=== PATIENT | female | born 1995 | race Caucasian/White ===

== ENCOUNTER → 2020-10-29 17:00 | Outpatient (CLI) | payer SELFPAY | END | disposition home or self-care (01) | LOC: D.ER 16:41 → D.LDO 17:00 → EDSTATUS 17:04 | PROVIDERS: ATTEND Obstetrics & Gynecology | DX: O26.899 Other specified pregnancy related conditions, unspecified trimester (principal); R10.9 Unspecified abdominal pain ==

== ENCOUNTER 2020-12-03 14:38 | Outpatient (CLI) | payer BC | END 2020-12-03 15:25 | disposition home or self-care (01) | LOC: D.LDO 14:38 | PROVIDERS: ATTEND Obstetrics & Gynecology | DX: O36.8190 Decreased fetal movements, unspecified trimester, not applicable or unspecified (principal) ==

== ENCOUNTER 2020-12-03 23:20 | Emergency (ER) | payer SELFPAY ==
[~2020-12-03] VITALS: Ht 167.6 cm; Wt 105.5 kg
[2020-12-03 23:31] VITALS: Ht 167.6 cm; Wt 105.5 kg
[2020-12-03 23:55] LABS: HEMATOCRIT 30.3 % (36.0-48.0); HEMOGLOBIN 10.2 g/dL (12-16); LYMPHOCYTES 17.7 % (15-50); MCHC 33.7 g/dL (31.0-37.0); MCV 80.2 fL (80.0-100.0); MEAN PLATELET VOLUME 10.6 fL (7.4-10.4); NEUTROPHILS 76.8 % (40-80); PLATELET COUNT 262 10x3/uL (130-400); RBC 3.78 10x6/uL (4.00-5.40); WBC 14.7 10x3/uL (4.8-10.8)
[2020-12-04 00:02] LABS: CALC OSMOLALITY 273 mosm/kg (275-300); CALCIUM 8.9 mg/dL (8.5-10.1); CHLORIDE - SERUM 104 mmol/L (98-107); CREATININE - SERUM 0.7 mg/dL (0.6-1.3); GLUCOSE 91 mg/dL (74-106); POTASSIUM - SERUM 3.6 mmol/L (3.5-5.1); SODIUM 138 mmol/L (136-145); UREA NITROGEN 6 mg/dL (7-18); eGFR NON AFRICAN AMERICAN > 90 mL/min (90-120)
[2020-12-04 00:03] LABS: ALBUMIN 2.9 g/dL (3.4-5.0); ALKALINE PHOSPHATASE 89 U/L (30-120); ALT (SGPT) 22 U/L (10-68); BILIRUBIN - TOTAL 0.32 mg/dL (0.2-1.3); PROTEIN - SERUM 6.8 g/dL (6.4-8.2)
[2020-12-04 00:17] LABS: BILIRUBIN NEGATIVE (NEGATIVE); KETONE NEGATIVE (NEGATIVE); NITRITE NEGATIVE (NEGATIVE); UROBILINOGEN NORMAL mg/dL (< 2)
[2020-12-04 00:19] LABS: AMORPHOUS SEDIMENT <1+ LPF (NONE SEEN); BACTERIA MODERATE HPF (NONE SEEN); SQUAMOUS EPITHELIAL 0-5 HPF (0-4); WHITE CELLS - URINE 0-5 HPF (0-4)
[2020-12-04 01:52] VITALS: BP 131/68
[2020-12-05] MEDS ORDERED: HYDROCODON-ACE1 EAC7 PO (12:03)
== END 2020-12-04 01:52 | disposition home or self-care (01) ==
LOC: D.ER 23:20
PROVIDERS: Family Medicine
DX: O99.613 Diseases of the digestive system complicating pregnancy, third trimester (principal); R10.11 Right upper quadrant pain; Z3A.34 34 weeks gestation of pregnancy

== ENCOUNTER 2020-12-04 19:41 | Outpatient (CLI) | payer BC ==
[2020-12-04 22:09] LABS: BASOPHILS 0.1 % (0-2); EOSINOPHILS 0.4 % (0-7); HEMATOCRIT 30.7 % (36.0-48.0); IMMATURE GRANULOCYTES 0.3 % (0-5); LYMPHOCYTE ABS# 1.66 10x3/uL (1.18-3.74); LYMPHOCYTES 13.1 % (15-50); MCH 26.7 pg (26.0-34.0); MCHC 32.6 g/dL (31.0-37.0); MCV 81.9 fL (80.0-100.0); MONOCYTES 5.3 % (2-11); NEUTROPHIL ABS# 10.28 10x3/uL (1.56-6.13); NEUTROPHILS 80.8 % (40-80); PLATELET COUNT 277 10x3/uL (130-400); RBC 3.75 10x6/uL (4.00-5.40); RDW 13.9 % (11.5-14.5); WBC 12.7 10x3/uL (4.8-10.8)
[2020-12-04 22:21] LABS: CALC OSMOLALITY 273 mosm/kg (275-300); CARBON DIOXIDE 23.3 mmol/L (21.0-32.0); CHLORIDE - SERUM 105 mmol/L (98-107); CREATININE - SERUM 0.6 mg/dL (0.6-1.3); GLUCOSE 76 mg/dL (74-106); POTASSIUM - SERUM 3.5 mmol/L (3.5-5.1); SODIUM 139 mmol/L (136-145); UREA NITROGEN 5 mg/dL (7-18); eGFR NON AFRICAN AMERICAN > 90 mL/min (90-120)
[2020-12-04 22:24] LABS: ALBUMIN 2.8 g/dL (3.4-5.0); ALKALINE PHOSPHATASE 106 U/L (30-120); AMYLASE - SERUM 39 U/L (25-115); BILIRUBIN - TOTAL 1.13 mg/dL (0.2-1.3); LIPASE 61 U/L (73-393); PROTEIN - SERUM 6.8 g/dL (6.4-8.2)
[2020-12-04 22:25] LABS: ALT (SGPT) 51 U/L (10-68)
[2020-12-05 10:02] LABS: BASOPHILS 0.2 % (0-2); EOSINOPHILS 1.7 % (0-7); HEMATOCRIT 26.7 % (36.0-48.0); HEMOGLOBIN 8.6 g/dL (12-16); IMMATURE GRANULOCYTES 0.2 % (0-5); LYMPHOCYTES 20.6 % (15-50); MCH 26.5 pg (26.0-34.0); MCHC 32.2 g/dL (31.0-37.0); MCV 82.4 fL (80.0-100.0); MONOCYTES 6.7 % (2-11); NEUTROPHIL ABS# 6.15 10x3/uL (1.56-6.13); NEUTROPHILS 70.6 % (40-80); RBC 3.24 10x6/uL (4.00-5.40); RDW 13.8 % (11.5-14.5)
[2020-12-05 10:03] LABS: PLATELET COUNT 207 10x3/uL (130-400); WBC 8.7 10x3/uL (4.8-10.8)
[2020-12-05 10:18] LABS: ALBUMIN 2.4 g/dL (3.4-5.0); ALKALINE PHOSPHATASE 92 U/L (30-120); ALT (SGPT) 37 U/L (10-68); AMYLASE - SERUM 35 U/L (25-115); BILIRUBIN - TOTAL 0.25 mg/dL (0.2-1.3); CALC OSMOLALITY 275 mosm/kg (275-300); CALCIUM 8.2 mg/dL (8.5-10.1); CARBON DIOXIDE 20.8 mmol/L (21.0-32.0); CHLORIDE - SERUM 107 mmol/L (98-107); CREATININE - SERUM 0.6 mg/dL (0.6-1.3); GLUCOSE 90 mg/dL (74-106); LIPASE 58 U/L (73-393); POTASSIUM - SERUM 3.6 mmol/L (3.5-5.1); PROTEIN - SERUM 5.6 g/dL (6.4-8.2); SODIUM 139 mmol/L (136-145); UREA NITROGEN 6 mg/dL (7-18); eGFR NON AFRICAN AMERICAN > 90 mL/min (90-120)
[2020-12-05] MEDS ORDERED: HYDROCODON-ACE1 EAC7 PO (12:03)
[2020-12-05 13:04] VITALS: BMI 37.5
== END 2020-12-05 12:45 | disposition home or self-care (01) ==
LOC: D.LD 19:41 → D.LDO 19:41 → D.LD 20:49 → D.LDO 12-05 12:45
PROVIDERS: Obstetrics & Gynecology; ATTEND Obstetrics & Gynecology
DX: O26.899 Other specified pregnancy related conditions, unspecified trimester (principal); K82.9 Disease of gallbladder, unspecified

== ENCOUNTER 2020-12-06 18:01 | Emergency (ER) | payer BC ==
[~2020-12-06] VITALS: Ht 167.6 cm; Wt 104.5 kg
[~2020-12-06 18:01] MED LIST: HYDROCODON-ACE1 EAC7 PO
[2020-12-06 18:12] VITALS: Ht 167.6 cm; Wt 104.5 kg
[2020-12-06 22:26] LABS: BASOPHILS 0.1 % (0-2); EOSINOPHILS 0.4 % (0-7); HEMATOCRIT 30.3 % (36.0-48.0); HEMOGLOBIN 9.9 g/dL (12-16); IMMATURE GRANULOCYTES 0.1 % (0-5); LYMPHOCYTE ABS# 1.46 10x3/uL (1.18-3.74); LYMPHOCYTES 13.6 % (15-50); MCH 26.8 pg (26.0-34.0); MCHC 32.7 g/dL (31.0-37.0); MCV 81.9 fL (80.0-100.0); MEAN PLATELET VOLUME 11.4 fL (7.4-10.4); MONOCYTES 4.9 % (2-11); NEUTROPHIL ABS# 8.66 10x3/uL (1.56-6.13); NEUTROPHILS 80.9 % (40-80); RDW 13.8 % (11.5-14.5); WBC 10.7 10x3/uL (4.8-10.8)
[2020-12-06 22:30] LABS: PLATELET COUNT 263 10x3/uL (130-400)
[2020-12-06 22:31] LABS: BILIRUBIN NEGATIVE (NEGATIVE); KETONE LARGE mg/dL (NEGATIVE); NITRITE NEGATIVE (NEGATIVE); UROBILINOGEN 4 mg/dL (< 2)
[2020-12-06 22:38] LABS: CALC OSMOLALITY 273 mosm/kg (275-300); CARBON DIOXIDE 21.1 mmol/L (21.0-32.0); CHLORIDE - SERUM 104 mmol/L (98-107); CREATININE - SERUM 0.5 mg/dL (0.6-1.3); GLUCOSE 71 mg/dL (74-106); POTASSIUM - SERUM 3.5 mmol/L (3.5-5.1); SODIUM 139 mmol/L (136-145); UREA NITROGEN 6 mg/dL (7-18); eGFR NON AFRICAN AMERICAN > 90 mL/min (90-120)
[2020-12-06 22:47] LABS: ALBUMIN 2.9 g/dL (3.4-5.0); ALKALINE PHOSPHATASE 135 U/L (30-120); BILIRUBIN - TOTAL 1.11 mg/dL (0.2-1.3)
[2020-12-06 22:56] LABS: ALT (SGPT) 85 U/L (10-68); PROTEIN - SERUM 7.2 g/dL (6.4-8.2)
[2020-12-06 23:00] VITALS: BP 98/55
[2020-12-07] VITALS: BP 98/54
[2020-12-07 01:27] VITALS: BP 91/44
[2020-12-07 02:00] VITALS: BP 98/61
[2020-12-07 03:30] VITALS: BP 109/78
== END 2020-12-07 02:48 | disposition left against medical advice (07) ==
LOC: OBSVTIME → D.ER 18:01 → D.EDHOLD 12-07 02:16 → OBSVTIME 12-07 02:16 → D.EDHOLD 12-07 02:48 → D.ER 12-07 02:48
PROVIDERS: Family Medicine
DX: O99.613 Diseases of the digestive system complicating pregnancy, third trimester (principal); Z3A.34 34 weeks gestation of pregnancy; R10.11 Right upper quadrant pain

== ENCOUNTER 2020-12-22 22:18 | Outpatient (CLI) | payer BC ==
[2020-12-06 18:12] VITALS: BMI 37.2
== END 2020-12-22 22:45 | disposition home or self-care (01) ==
LOC: D.LDO 22:18
PROVIDERS: ATTEND Obstetrics & Gynecology
DX: O47.03 False labor before 37 completed weeks of gestation, third trimester (principal); Z3A.36 36 weeks gestation of pregnancy

== ENCOUNTER 2020-12-24 18:53 | Outpatient (CLI) | payer BC ==
[2020-12-06 18:12] VITALS: Ht 167.6 cm; Wt 103.4 kg
[~2020-12-24] VITALS: Ht 167.6 cm; Wt 103.4 kg
[2020-12-24 19:43] LABS: ALBUMIN 2.7 g/dL (3.4-5.0); ALKALINE PHOSPHATASE 98 U/L (30-120); ALT (SGPT) 30 U/L (10-68); AMYLASE - SERUM 42 U/L (25-115); BILIRUBIN - TOTAL 0.53 mg/dL (0.2-1.3); CALC OSMOLALITY 268 mosm/kg (275-300); CALCIUM 8.3 mg/dL (8.5-10.1); CARBON DIOXIDE 22.7 mmol/L (21.0-32.0); CHLORIDE - SERUM 104 mmol/L (98-107); CREATININE - SERUM 0.7 mg/dL (0.6-1.3); GLUCOSE 76 mg/dL (74-106); LIPASE 68 U/L (73-393); POTASSIUM - SERUM 3.4 mmol/L (3.5-5.1); PROTEIN - SERUM 6.5 g/dL (6.4-8.2); SODIUM 136 mmol/L (136-145); UREA NITROGEN 6 mg/dL (7-18); eGFR NON AFRICAN AMERICAN > 90 mL/min (90-120)
--- NOTE | 2020-12-25 07:50 | NUR ---
THIS RN TO ROOM FOR PT CHECK. PT LYING IN BED ON RIGHT SIDE, ALERTS TO VOICE. PT STATES SHE FEELS "MUCH BETTER", RATES PAIN 2/10, AND FEELS LIKE EATING BREAKFAST. WILL UPDATE DR ABDUL AND RETURN FOR SHIFT ASSESSMENT.
--- NOTE | 2020-12-25 08:00 | NUR ---
DR ABDUL PHONED AND UPDATE GIVEN THAT PT REPORTS FEELING "MUCH BETTER" THIS MORNING. DENIES NAUSEA, RATES PAIN 2/10, STATES SHE FEELS LIKE EATING BREAKFAST. ORDER RECEIVED FOR LOW-FAT BREAKFAST TRAY AND NST. IF TOLERATES BREAKFAST AND NST REACTIVE, WILL D/C TO HOME.
[2020-12-27 14:34] VITALS: Ht 167.6 cm; Wt 103.4 kg
== END 2020-12-25 19:00 | disposition home or self-care (01) ==
LOC: D.LDO 18:53 → D.LD 18:54 → D.LDO 12-25 19:00
PROVIDERS: ATTEND Student in an Organized Health Care Education/Training Program
DX: O35.9XX0 Maternal care for (suspected) fetal abnormality and damage, unspecified, not applicable or unspecified (principal)

== ENCOUNTER 2020-12-26 09:32 | Inpatient (IN) | payer BC ==
[~2020-12-26] VITALS: Ht 167.6 cm; Wt 105.2 kg
--- NOTE | 2020-12-26 10:15 | NUR ---
ORDERS RECEIVED FROM DR ARORA FOR ADMIT WITH INDUCTION OF LABOR.
--- NOTE | 2020-12-26 10:46 | NUR ---
PT TO BATHROOM TO CHANGE INTO GOWN AND GIVE URINE SAMPLE. SHE DENIES ANY QUESTIONS OR CONCERNS ABOUT PLAN OF CARE FOR INDUCTION OF LABOR.
[2020-12-26 11:43] LABS: BASOPHILS 0.7 % (0-2); EOSINOPHILS 1.1 % (0-7); HEMATOCRIT 30.6 % (36.0-48.0); HEMOGLOBIN 10.3 g/dL (12-16); LYMPHOCYTES 18.4 % (15-50); MCH 26.9 pg (26.0-34.0); MCHC 33.8 g/dL (31.0-37.0); MCV 79.5 fL (80.0-100.0); MONOCYTES 5.6 % (2-11); NEUTROPHILS 74.2 % (40-80); PLATELET COUNT 213 10x3/uL (130-400); RBC 3.84 10x6/uL (4.00-5.40); RDW 14.3 % (11.5-14.5)
[2020-12-26 11:56] LABS: ALBUMIN 2.9 g/dL (3.4-5.0); ALKALINE PHOSPHATASE 118 U/L (30-120); AMYLASE - SERUM 35 U/L (25-115); BILIRUBIN - TOTAL 0.69 mg/dL (0.2-1.3); CALC OSMOLALITY 269 mosm/kg (275-300); CARBON DIOXIDE 24.3 mmol/L (21.0-32.0); CHLORIDE - SERUM 102 mmol/L (98-107); CREATININE - SERUM 0.7 mg/dL (0.6-1.3); GLUCOSE 72 mg/dL (74-106); POTASSIUM - SERUM 3.7 mmol/L (3.5-5.1); SODIUM 137 mmol/L (136-145); UREA NITROGEN 5 mg/dL (7-18); eGFR NON AFRICAN AMERICAN > 90 mL/min (90-120)
[2020-12-26 11:58] LABS: ALT (SGPT) 41 U/L (10-68); LIPASE 50 U/L (73-393)
[2020-12-26 12:15] LABS: UDS - AMPHET NEGATIVE QUAL (NEGATIVE); UDS - BARB NEGATIVE QUAL (NEGATIVE); UDS - BENZO NEGATIVE QUAL (NEGATIVE); UDS - COCAINE NEGATIVE QUAL (NEGATIVE); UDS - OPIATE POSITIVE QUAL (NEGATIVE); UDS - PCP NEGATIVE QUAL (NEGATIVE); UDS - THC NEGATIVE QUAL (NEGATIVE)
[2020-12-26 16:14] VITALS: BMI 37.5
[2020-12-27] VITALS (8 sets, daily range): BP systolic 115–142; BP diastolic 55–68; Ht 167.6 cm; Wt 105.2 kg
--- NOTE | 2020-12-27 08:06 | NUR ---
VIABLE FEMALE BORN AT 0759 ALL CORD BLOOD SENT
[2020-12-27 08:14] LABS: RAPID PLASMA REAGIN Non Reactive (Non Reactive)
--- NOTE | 2020-12-27 13:30 | NUR ---
ROOM CHECK, PT , RATING PAIN TO INCISIONAL AREA 3/10, REPORTS CRAMPING. DENIES OTHER NEEDS, PT CONTINUES TO DENY N/V, SOB, CHEST PAIN, OR DIZZINESS. SR UP X2, CL/PHONE IN REACH. SIG OTHER AT BEDSIDE.
--- NOTE | 2020-12-27 14:10 | NUR ---
LAB HERE FOR CBC DRAW.
[2020-12-27 14:36] LABS: BASOPHILS 0.2 % (0-2); EOSINOPHILS 0.2 % (0-7); LYMPHOCYTES 10.6 % (15-50); MCH 25.8 pg (26.0-34.0); MCV 78.4 fL (80.0-100.0); MEAN PLATELET VOLUME 9.7 fL (7.4-10.4); MONOCYTES 5.7 % (2-11); NEUTROPHILS 83.3 % (40-80); PLATELET COUNT 188 10x3/uL (130-400); RBC 3.11 10x6/uL (4.00-5.40); RDW 14.8 % (11.5-14.5)
[2020-12-27 14:38] LABS: HEMATOCRIT 24.4 % (36.0-48.0); WBC 14.6 10x3/uL (4.8-10.8)
--- NOTE | 2020-12-27 19:00 | NUR ---
BEDSIDE SHIFT REPORT RCVD. PT DENIES NEEDS AT THIS TIME, CURRENTLY FEEDING . WILL RETURN FOR SHIFT ASSESSMENT.
--- NOTE | 2020-12-27 20:15 | NUR ---
ROUNDS MADE. PT CONTINUES TO ATTEMPT TO FEED . ADVISED TO CALL WHEN FINISHED. PT DENIES PAIN OR NEEDS.
--- NOTE | 2020-12-27 21:00 | NUR ---
SHIFT ASSESSMENT COMPLETED. SEE FLOWSHEET. HR-RRR, PPP, LUNGS CTAB, BS ACTIVE X3. PIV TO RT WRIST PATENT WITH NS WITH 20 U PITOCIN INFUSING AT 125ML/HR. NO ERYTHEMA OR EDEMA NOTED TO SITE. LARGE DRESSING NOTED TO LOWER ABD WITH LOW TRANSVERSE INCISION. FF U/1. SCANT LOCHIA RUBRA NOTED TO PERIPAD. PAD CHANGED. MORENO DRAINING TO GRAVITY. SCD'S IN PLACE, PUMP ON AND FUNCTIONING. PT DENIES QUESTIONS, CONCERNS, OR C/O. WILL CONTINUE TO MONITOR.
--- NOTE | 2020-12-27 22:31 | NUR ---
TORADOL GIVEN FOR PAIN RATED 5/10 AT THIS TIME. PT DENIES FURTHER NEEDS. WILL CONTINUE TO MONITOR.
--- NOTE | 2020-12-28 00:13 | NUR ---
PAIN REASSESSMENT COMPLETED. PT RATES PAIN 2/10 AND TOLERABLE, SITTING UP IN BED INFANT. DENIES NEEDS AT THIS TIME.
--- NOTE | 2020-12-28 02:32 | NUR ---
ROUNDS MADE. PT LYING SUPINE WITH HOB 45 DEGREES, RESTING WITH EYES CLOSED AND RESPIRATIONS EVEN AND UNLABORED. FOB SLEEPING ON COUCH AT BEDSIDE. PT LEFT UNDISTURBED AT THIS TIME.
--- NOTE | 2020-12-28 04:13 | NUR ---
PT CALLS OUT ON LIGHT REQUESTING PERIPADS. PT C/O URINE LEAKING OUT OF MORENO. 400 MLS YELLOW URINE EMPTIED INTO DRAINAGE BAG. NEW PERIPADS AND CHARY PLACED. PT'S RN NOTIFIED OF C/O URINE LEAKING FROM MORENO.
--- NOTE | 2020-12-28 04:28 | NUR ---
PT REPORTS MORNEO CATHETER LEAKING. UPON ASSESSMENT, PT'S LINENS NOTED TO BE SATURATED IN URINE. REPORT CALLED TO DR LOWELL MD ON-CALL. T/O RCVD TO D/C MORENO, BUT UTILIZE A BEDPAN IF NEEDED UNTIL DR ARORA MAKES ROUNDS THIS AM. POC DISCUSSED WITH PT. MORENO CATH D/C'D WITH ANOTHER 175ML CLEAR YELLOW URINE DRAINED INTO UROMETER. CHUCKS AND PERIPADS CHANGED. PT DENIES FURTHER NEEDS AT THIS TIME.
[2020-12-28 04:29] VITALS: BP 125/68
--- NOTE | 2020-12-28 06:22 | NUR ---
ROUNDS MADE. PT ATTEMPTING TO CALM IN OPEN CRIB AT BEDSIDE. PLACED IN PT'S ARMS PER REQUEST. PT DENIES PAIN OR NEEDS. DENIES NEED TO VOID. WILL CONTINUE TO MONITOR.
[2020-12-28 06:56] LABS: BASOPHILS 0.4 % (0-2); HEMATOCRIT 23.6 % (36.0-48.0); HEMOGLOBIN 7.9 g/dL (12-16); LYMPHOCYTES 20.8 % (15-50); MCH 26.9 pg (26.0-34.0); MCHC 33.5 g/dL (31.0-37.0); MCV 80.2 fL (80.0-100.0); MEAN PLATELET VOLUME 9.4 fL (7.4-10.4); MONOCYTES 6.3 % (2-11); NEUTROPHILS 71.5 % (40-80); PLATELET COUNT 178 10x3/uL (130-400); RBC 2.95 10x6/uL (4.00-5.40); RDW 14.4 % (11.5-14.5)
[2020-12-28 07:20] VITALS: BP 111/63
--- NOTE | 2020-12-28 07:20 | NUR ---
AM ASSESSMENT COMPLETED, SEE FLOWSHEET. FUNDUS FIRM, U/1, SMALL RUBRA LOCHIA, NO CLOTS. PT REPORTS FEELING LIKE HER BLADDER IS FULL, NO BLADDER DISTENSION PALPATED. MEDICATION ADM RECORD REVIEWED WITH PT. PT WANTS TO WAIT TO GET UP TO THE BATHROOM WHEN HER PAIN MEDICATION STARTS TO WORK. MUG OF SPRITE SERVED TO PT AT HER REQUEST. SRUP 2, CALL LIGHT AND PHONE WITHIN REACH. PT DENIES ALL OTHER NEEDS.
--- NOTE | 2020-12-28 07:30 | NUR ---
DR. ARORA IN MD BORJA, REPORT TO MD PT IS WANTING TO GET UP WHEN HER PAIN MEDICATION STARTS TO WORK, VERBAL ORDER FROM MD TO NORMALIZE PT, MAY SL IV, AMBULATE, ADVANCE DIET AND CHANGE PAIN MEDICATION TO PO.
[2020-12-28 07:31] LABS: WBC 8.5 10x3/uL (4.8-10.8)
--- NOTE | 2020-12-28 07:45 | NUR ---
PT CALLS OUT FOUNTAIN VENDING MECHANIC LIGHT STATES SHE IS READY TO GET UP TO THE BATHROOM TO PEE. TO ROOM, IV SL, ALL IVFS STOPPED. PT THEN ASSISTED UP TO BR, GAIT SLOW AND STEADY. PT VOIDS PER SELF IN [place] HAT, WITHOUT DIFFICULTY, 800 MLS. PERICARE THEN DONE WITH WARM WATER, PERIBOTTLE. PERIPANTIES AND PADS ON. SMALL RUBRA LOCHIA, NO CLOTS. CLEAN GOWN ON. BED LINENS CHANGED. SRUPX2, CL/PHONE WITHIN REACH. PT THEN WANTS TO SIT ON SOFA WITH HER SIG OTHER FOR NOW. INFANT IN CRIB, NO DISTRESS NOTED. PARENTS DENY NEEDS.
--- NOTE | 2020-12-28 09:15 | NUR ---
DR. ARORA TO PT'S ROOM TO SPEAK WITH HER REGARDING PLAN OF CARE.
--- NOTE | 2020-12-28 09:55 | NUR ---
DR. ARORA ON UNIT, VERBAL ORDER RECEIVED TO ADVANCE PAIN MEDICATION TO PO IBUPROFEN 600 MG ONE EVERY 6 HRSP, AND NORCO 10 MG ONE EVERY 4 HRSP.
--- NOTE | 2020-12-28 11:34 | NUR ---
PT CALLS OUT CHIEF ENVIRONMENTAL COMMITMENT OFFICER LIGHT, REQUESTS PAIN MEDICATION, TO ROOM, PAIN ASSESSED, PT C/O PAIN TO INCISIONAL AREA, RATING PAIN 7/10, SEE EMAR. NORCO 10 MG ONE PO GIVEN FOR C/O PAIN. PT IS SITTING ON SOFA WITH SIG OTHER, PT HAS I/S IN HAND, STATES "I HAVE BEEN USING THIS THING EVERY TIME I THINK ABOUT". INFANT IN CRIB, SLEEPING, NO DISTRESS NOTED.
--- NOTE | 2020-12-28 12:00 | NUR ---
PT UP TO BR, AMBULATORY, PER SELF. VOIDS 600 MLS LIGHT YELLOW URINE, PERICARE DONE PER SELF. BACK TO SOFA, SHE IS SITTING UP ON THE SIDE OF THE BED WITH SIG OTHER. LARGE ICE WATER SERVED. PT DENIES ALL OTHER NEEDS AT THIS TIME.
--- NOTE | 2020-12-28 15:58 | NUR ---
TO PT'S ROOM FOR CHECK, PT CONTINUES TO DENY HEAVY BLEEDING OR PASSING CLOTS. PT DENIES SOB, DIZZINESS, CHEST PAIN OR DIFFICULTY BREATHING. VS OBTAINED, WNL CHARTED AT 1600. PT DENIES DIFFICULTY VOIDING, PT HAS VOIDED 3 MEASURED TIMES TODAY, INFORMED PT SHE NO LONGER HAS TO COLLECT, UNLESS C/O DIFFICULTY VOIDING. PT WISHES TO TAKE PAIN MEDICATION, NORCO 10 MG ONE PO GIVEN, SEE EMAR, AND THEN GIVE IT TIME TO WORK, AND THEN TAKE A SHOWER. CLEAN LINENS PROVIDED. SRUP X2, CL/PHONE WITHIN REACH. PT DENIES ALL OTHER NEEDS.
[2020-12-28 16:00] VITALS: BP 113/62
--- NOTE | 2020-12-28 17:00 | NUR ---
PT UP TO SHOWER, PERIPADS AND PANTIES PROVIDED. DIETARY SERVES REGULAR SUPPER TRAY. SIG OTHER HAS BROUGHT SUPPER TO PT. SR UP X 2, CALL LIGHT AND PHONE WITHIN REACH.
--- NOTE | 2020-12-28 18:50 | NUR ---
REPORT GIVEN TO 7 P SHIFT.
[2020-12-28 19:55] VITALS: BP 133/72
--- NOTE | 2020-12-28 19:55 | NUR ---
SHIFT ASSESSMENT COMPLETED AT THIS TIME. SEE FLOWSHEET. PT DENIES NEEDS FOR PAIN MEDICATION AT THIS TIME. HR-RRR, PPP, LUNGS CTAB, BS X4. FUNDUS REMAINS FIRM, ML, U/1. LOW TRANSVERSE INCISION WELL APPROXIMATED, C/D/I. BED LOW, WHEELS LOCKED, CL AND PHONE WITHIN REACH, SIDE RAILS UP X2.
--- NOTE | 2020-12-28 22:20 | NUR ---
RN TO BEDSIDE. PT SITTING ON COUCH AT BEDSIDE WITH FOB. INFANT RESTING IN OPEN CRIB. PT REQUESTS AND RECEIVES NORCO 10/325 MG X1 TAB AND MOTRIN 600 MG X1 TAB GIVEN FOR PAIN RATED 5/10 AT THIS TIME. PT DENIES FURTHER NEEDS. WILL CONTINUE TO MONITOR.
--- NOTE | 2020-12-28 22:40 | NUR ---
PT AMB IN HALLWAY. STEADY GAIT NOTED. DENIES NEEDS.
--- NOTE | 2020-12-28 23:30 | NUR ---
PAIN REASSESSMENT COMPLETED. PT RATES PAIN 3/10 AND TOLERABLE. DENIES FURTHER NEEDS AT THIS TIME.
[2020-12-29 02:35] VITALS: BP 123/61
--- NOTE | 2020-12-29 02:35 | NUR ---
pt. awakened for vitals at this time. VSS. See graph. pt. reports pain is at "5" on 0-10 scale at this time and request "can i have my pain medicine yet". Advised pt. I will bring it right back.
--- NOTE | 2020-12-29 02:40 | NUR ---
[place] 10/325 mg tablet administered orally and per pt. c/o pain and md orders. pt. is offered an ice pack at this time but refuses. Will cont. to monitor.
[2020-12-29 07:31] VITALS: BP 118/59
--- NOTE | 2020-12-29 07:31 | NUR ---
THIS RN TO ROOM FOR SHIFT ASSESSMENT. PT LYING IN BED, SUPINE, HOB APPROX 45 DEGREES. PT AAOx3, DENIES PAIN OR ANY NEEDS. SHIFT ASSESSMENT COMPLETE AND VSS, SEE FLOWSHEET FOR DOC. DISCUSSED POSSIBLE D/C TO HOME WITH PT, STATES SHE FEELS READY. DENIES DIZZINESS WHEN UP AMBULATING, GOOD COLOR/TONE TO SKIN, HR WNL. PT DENIES HEAVY LOCHIA, STATES SHE JUST HAD 2 PEA SIZED CLOTS WHEN UP TO BR APPROX 1 HOUR AGO. REINFORCE TO PT S/S TO REPORT REGARDING LOCHIA/CLOTS, UNDERSTANDING VERBALIZED. I.S. TEACHING ALSO REINFORCED, PT STATES SHE HAS BEEN DOING IT THROUGHOUT THE NIGHT INSTRUCTED. DENIES NAUSEA. FF, ML, U/3. SMALL RUBRA LOCHIA NOTED TO PERIPAD, PT STATES CHANGED APPROX 1 HOUR AGO WHEN UP TO BR. LOW TRANSVERSE ABD INCISION IS C/D WITH NOAH INTACT. MILD EDEMA NOTED BILAT TO LE, NON-PITTING, NEG HOMANS SIGN BILAT, 2+ PEDAL PULSES BILAT. POC DISCUSSED WITH PT INCLUDING DIET GIVEN GALLBLADDER ISSUES THIS . PT DENIES FEELING ANY GALLBLADDER PAINS SINCE DELIVERY AND THAT SHE UNDERSTANDING WHAT DIET TO ADHERE TO. WILL CALL FOR ANY NEEDS. SRUx2, CL IN REACH. IN [place] AT BEDSIDE. SIG OTHER ON BEDSIDE COUCH.
--- NOTE | 2020-12-29 08:40 | NUR ---
THIS RN TO ROOM FOR PT CHECK. PT SITTING UP IN BED, TALKING WITH SIG OTHER. DENIES NEEDS. SRUx2, CL IN REACH.
[2020-12-29] MEDS ORDERED: IBUPROFEN600 MG PO (08:55)
[2020-12-29] MEDS ORDERED: HYDROCODON-ACE1 EA10 PO (08:55)
--- NOTE | 2020-12-29 09:27 | NUR ---
DR ARORA TO PT ROOM FOR ROUNDING. ORDER RECEIVED FOR DISCHARGE AND FOR PT TO CALL THURSDAY TO MAKE APPOINTMENT TO BE SEEN TO SCHEDULE GALLBLADDER PROCEDURE IF NEEDED. PRESCRIPTIONS FOR PAIN CONTROL POST D/C TO HOME PROVIDED.
--- NOTE | 2020-12-29 10:37 | NUR ---
THIS RN TO ROOM FOR D/C TEACHING. PT REQUESTS NORCO FOR RIDE HOME SHE IS ALREADY HURTING MORE AND MAY TAKE A WHILE TO GET PRESCRIPTIONS FILLED. NORCO 10 ADMIN ORDERED FOR PAIN, SEE EMAR FOR DOC.
--- NOTE | 2020-12-29 10:50 | NUR ---
DISCHARGE TEACHING COMPLETED, WELL PRESCRIPTIONS GIVEN TO PT PROVIDED BY DR ARORA FOR PAIN CONTROL POST D/C TO HOME. PT VERBALIZES UNDERSTANDING OF TEACHING AND MED INSTRUCTIONS, DENIES QUESTIONS, SIGNS CHART COPIES OF INSTRUCTIONS AND PT COPIES GIVEN.
--- NOTE | 2020-12-29 11:03 | NUR ---
PT REFUSES W/C OFF UNIT, STATES IT FEELS BETTER TO WALK. PT OFF UNIT AMBULATORY ACCOMPANIED TO PRIVATE VEHICLE BY THIS RN. PT DISCHARGED WITH TO PRIVATE VEHICLE, SIG OTHER TO DRIVE PT HOME.
== END 2020-12-29 11:03 | disposition home or self-care (01) | DRG 788 ==
LOC: D.LDO 09:32 → D.LD 10:10
PROVIDERS: ADMIT Obstetrics & Gynecology; ATTEND Obstetrics & Gynecology
PROC: 3E033VJ Introduction of Other Hormone into Peripheral Vein, Percutaneous Approach (ICD-10-PCS; 2020-12-26)
PROC: 10D00Z1 Extraction of Products of Conception, Low, Open Approach (ICD-10-PCS; principal; 2020-12-27 07:09)
DX: O99.62 Diseases of the digestive system complicating childbirth (principal); O99.824 Streptococcus B carrier state complicating childbirth; Z3A.37 37 weeks gestation of pregnancy; Z37.0 Single live birth; K80.20 Calculus of gallbladder without cholecystitis without obstruction; K21.9 Gastro-esophageal reflux disease without esophagitis; O36.8330 Maternal care for abnormalities of the fetal heart rate or rhythm, third trimester, not applicable or unspecified; R82.4 Acetonuria; O75.89 Other specified complications of labor and delivery; O36.5130 Maternal care for known or suspected placental insufficiency, third trimester, not applicable or unspecified

== ENCOUNTER 2021-01-07 22:52 | Observation (INO) | payer BC ==
[~2021-01-07] VITALS: Ht 167.6 cm; Wt 94.1 kg
[~2021-01-07 22:52] MED LIST changes: +HYDROCODON-ACE1 EA10 PO; +IBUPROFEN600 MG PO
[2021-01-07 23:34] LABS: BILIRUBIN NEGATIVE (NEGATIVE); KETONE NEGATIVE (NEGATIVE); NITRITE NEGATIVE (NEGATIVE); UROBILINOGEN NORMAL mg/dL (< 2)
[2021-01-07 23:35] LABS: BASOPHILS 0.4 % (0-2); HEMATOCRIT 32.7 % (36.0-48.0); HEMOGLOBIN 10.5 g/dL (12-16); MCH 25.1 pg (26.0-34.0); MCHC 32.2 g/dL (31.0-37.0); MEAN PLATELET VOLUME 7.8 fL (7.4-10.4); MONOCYTES 5.5 % (2-11); NEUTROPHILS 75.1 % (40-80); RBC 4.19 10x6/uL (4.00-5.40); RDW 14.7 % (11.5-14.5); WBC 16.7 10x3/uL (4.8-10.8)
[2021-01-07 23:36] LABS: PLATELET COUNT 438 10x3/uL (130-400)
[2021-01-07 23:36] LABS: BACTERIA MODERATE HPF (NONE SEEN); SQUAMOUS EPITHELIAL 0-5 HPF (0-4)
[2021-01-07 23:48] LABS: CALC OSMOLALITY 281 mosm/kg (275-300); CALCIUM 8.7 mg/dL (8.5-10.1); CARBON DIOXIDE 24.8 mmol/L (21.0-32.0); CHLORIDE - SERUM 103 mmol/L (98-107); CREATININE - SERUM 0.8 mg/dL (0.6-1.3); GLUCOSE 99 mg/dL (74-106); POTASSIUM - SERUM 3.8 mmol/L (3.5-5.1); SODIUM 141 mmol/L (136-145); UREA NITROGEN 16 mg/dL (7-18); eGFR NON AFRICAN AMERICAN > 90 mL/min (90-120)
[2021-01-07 23:56] LABS: ALBUMIN 3.6 g/dL (3.4-5.0); ALKALINE PHOSPHATASE 103 U/L (30-120); ALT (SGPT) 36 U/L (10-68); AMYLASE - SERUM 47 U/L (25-115); BILIRUBIN - TOTAL 0.19 mg/dL (0.2-1.3); LIPASE 103 U/L (73-393); PROTEIN - SERUM 7.6 g/dL (6.4-8.2)
[2021-01-07 23:58] LABS: TROPONIN-I < 0.017 ng/mL (0.000-0.060)
[2021-01-08 01:10] VITALS: BP 118/67
--- NOTE | 2021-01-08 01:32 | NUR ---
CEFOTOXIN 2G STARTED @ 003 FINISHED 2 0108. 50ML INFUSED.
[2021-01-08 03:37] VITALS: BMI 33.4
[2021-01-08 05:53] LABS: BASOPHILS 0.3 % (0-2); EOSINOPHILS 0.3 % (0-7); HEMOGLOBIN 9.6 g/dL (12-16); LYMPHOCYTES 15.5 % (15-50); MCH 25.7 pg (26.0-34.0); MCHC 32.9 g/dL (31.0-37.0); MCV 78.1 fL (80.0-100.0); MEAN PLATELET VOLUME 8.4 fL (7.4-10.4); MONOCYTES 5.1 % (2-11); NEUTROPHILS 78.8 % (40-80); PLATELET COUNT 381 10x3/uL (130-400); RBC 3.72 10x6/uL (4.00-5.40); RDW 14.7 % (11.5-14.5)
[2021-01-08 06:08] LABS: APTT 33.1 SECONDS (22.8-39.4); INR 1.14 (0.85-1.17); PROTIME 13.6 SECONDS (11.6-15.0)
[2021-01-08 06:32] LABS: WBC 12.4 10x3/uL (4.8-10.8)
[2021-01-08 06:38] LABS: ALBUMIN 3.4 g/dL (3.4-5.0); ALKALINE PHOSPHATASE 95 U/L (30-120); ALT (SGPT) 37 U/L (10-68); BILIRUBIN - TOTAL 0.32 mg/dL (0.2-1.3); CALC OSMOLALITY 279 mosm/kg (275-300); CALCIUM 8.4 mg/dL (8.5-10.1); CARBON DIOXIDE 25.7 mmol/L (21.0-32.0); CHLORIDE - SERUM 105 mmol/L (98-107); CREATININE - SERUM 0.7 mg/dL (0.6-1.3); GLUCOSE 101 mg/dL (74-106); MAGNESIUM - SERUM 2.2 mg/dL (1.8-2.4); PHOSPHOROUS 4.2 mg/dL (2.5-4.9); POTASSIUM - SERUM 4.6 mmol/L (3.5-5.1); PROTEIN - SERUM 7.1 g/dL (6.4-8.2); SODIUM 140 mmol/L (136-145); UREA NITROGEN 14 mg/dL (7-18); eGFR NON AFRICAN AMERICAN > 90 mL/min (90-120)
[2021-01-08 08:45] VITALS: BP 108/59
--- NOTE | 2021-01-08 09:02 | NUR ---
ALERT AND ORIENTED. ASSESSMENT COMPLETE. DENIES NEEDS. BED LOW. AT BEDSIDE. CALL WHELAN AND PERSONAL ITEMS IN REACH. WILL CONTINUE TO MONITOR.
--- NOTE | 2021-01-08 11:30 | NUR ---
URINE CUP PROVIDED FOR PATIENT. STATES WILL CALL WHEN VOIDS.
[2021-01-08 12:00] VITALS: BP 101/53
[2021-01-08 12:46] VITALS: Ht 167.6 cm; Wt 94.1 kg
--- NOTE | 2021-01-08 13:53 | NUR ---
CONSENTS OBTAINED FOR PROCEDURE TOMORROW. DENIES FURTHER NEEDS.
--- NOTE | 2021-01-08 14:00 | NUR ---
PATIENT STATES IV HURTING TO LEFT AC. REMOVED WITH TIP INTACT. RESITED TO RIGHT HAND AFTER ONE ATTEMPT WITH 20G IV. DENIES FURTHER NEEDS. WILL CONTINUE TO MONITOR.
[2021-01-08 19:58] VITALS: BP 110/48
[2021-01-09] VITALS (11 sets, daily range): BP systolic 94–114; BP diastolic 54–72
[2021-01-09 06:23] LABS: BASOPHILS 0.5 % (0-2); EOSINOPHILS 2.4 % (0-7); HEMOGLOBIN 9.2 g/dL (12-16); LYMPHOCYTES 28.2 % (15-50); MCH 26.1 pg (26.0-34.0); MCHC 32.9 g/dL (31.0-37.0); MCV 79.4 fL (80.0-100.0); MEAN PLATELET VOLUME 8.3 fL (7.4-10.4); MONOCYTES 6.7 % (2-11); NEUTROPHILS 62.2 % (40-80); RBC 3.53 10x6/uL (4.00-5.40); RDW 14.8 % (11.5-14.5); WBC 9.3 10x3/uL (4.8-10.8)
--- NOTE | 2021-01-09 06:30 | NUR ---
I have reviewed this patient and I concur with the Shift Assessment completed by the Licensed Practical Nurse today this shift.
[2021-01-09 06:39] LABS: ALKALINE PHOSPHATASE 96 U/L (30-120); ALT (SGPT) 30 U/L (10-68); BILIRUBIN - TOTAL 0.33 mg/dL (0.2-1.3); CALC OSMOLALITY 275 mosm/kg (275-300); CALCIUM 8.3 mg/dL (8.5-10.1); CARBON DIOXIDE 24.5 mmol/L (21.0-32.0); CHLORIDE - SERUM 107 mmol/L (98-107); CREATININE - SERUM 0.8 mg/dL (0.6-1.3); GLUCOSE 77 mg/dL (74-106); MAGNESIUM - SERUM 1.9 mg/dL (1.8-2.4); PHOSPHOROUS 3.5 mg/dL (2.5-4.9); POTASSIUM - SERUM 3.7 mmol/L (3.5-5.1); PROTEIN - SERUM 6.4 g/dL (6.4-8.2); SODIUM 140 mmol/L (136-145); UREA NITROGEN 8 mg/dL (7-18); eGFR NON AFRICAN AMERICAN > 90 mL/min (90-120)
[2021-01-09 06:59] LABS: PLATELET COUNT 291 10x3/uL (130-400)
--- NOTE | 2021-01-09 08:02 | NUR ---
AWAKE AND ALERT. ORIENTED X3. NO C/O AT THIS TIME. LUNGS ARE CLEAR BILATERALLY, NO COUGH NOTED. INSTRUCTED IN USE OF IS WITH RETURN DEMONSTRATION. SKIN IS INTACT WITHOUT REDNESS. IV TO RIGHT FOREARM IS PATENT WITHOUT REDNESS AT INSERTION SITE. DENIES NEEDS.
--- NOTE | 2021-01-09 08:45 | NUR ---
OFF UNIT VIA BED TO SURGERY.
--- NOTE | 2021-01-09 12:43 | NUR ---
NOTED PATIENT HAS RIGHT LABIA BOILS DR PATEL NOTIFIED
[2021-01-09] MEDS ORDERED: BACTRIM DS TAB1 EAC1 PO (13:12)
[2021-01-09] MEDS ORDERED: TYLENOL W/CODEI1 TAB PO (13:12)
[2021-01-09] MEDS ORDERED: PROTONIX20 MG PO (13:13)
--- NOTE | 2021-01-09 14:07 | NUR ---
RETURNED FROM SURGERY. A/O X3. SITTING UP IN BED EATING ICE. DENIES NEEDS. DRESSINGS X4 TO ABDOMEN DRY AND INTACT.
--- NOTE | 2021-01-09 15:53 | NUR ---
VOIDED 300CC CLEAR YELLOW URINE. AMBULATED 250 FEET WITH SBA. NO C/O PAIN WITH INCREASED ACTIVITY.
--- NOTE | 2021-01-09 18:33 | NUR ---
ATE MOST OF SANDWICH TRAY. NO C/O PAIN OR DISCOMFORT AFTER EATING. DISCHARGED TO HOME WITH AMBULATORY. DISCHARGE INSTRUCTIONS GIVEN BOTH VERBALLY AND WRITTEN. ALL QUESTIONS ANSWERED. PATIENT VERBALIZED UNDERSTANDING OF SAME. IV TO RIGHT HAND D/C WITH CATHETER INTACT. NEEDED PRESCRIPTIONS GIVEN TO PATIENT AND ESCRIBED TO PHARMACY OF CHOICE. ALL BELONGINGS WITH PATIENT.
== END 2021-01-09 18:42 | disposition home or self-care (01) ==
LOC: D.ER 22:52 → D.MS 01-08 00:20 → OBSVTIME 01-08 00:22 → D.MS 01-09 18:42
PROVIDERS: Emergency Medicine; ADMIT Emergency Medicine; ATTEND Emergency Medicine
DX: K80.00 Calculus of gallbladder with acute cholecystitis without obstruction (principal); E66.9 Obesity, unspecified; K21.9 Gastro-esophageal reflux disease without esophagitis; D50.9 Iron deficiency anemia, unspecified; N39.0 Urinary tract infection, site not specified